=== PATIENT | female | born 1980 ===

== ENCOUNTER 2017-02-28 11:02 | Outpatient (CLI) ==
[2016-05-14 02:21] VITALS: BMI 28.8
[2017-02-28 11:35] LABS: BASOPHILS # (AUTO) 0.1 K/uL (0-0.2); BASOPHILS % (AUTO) 0.7 % (0.0-3.0); EOSINOPHILS # (AUTO) 0.6 K/ul (0.0-0.7); EOSINOPHILS % (AUTO) 8.1 % (0.0-7.0); HEMATOCRIT 39.9 % (37.0-47.0); HEMOGLOBIN 13.5 g/dl (12.0-16.0); IMMATURE GRANULOCYTE % (AUTO) 0.1 % (0.0-5.0); LYMPHOCYTES # (AUTO) 1.4 K/uL (0.60-3.4); LYMPHOCYTES % (AUTO) 18.9 (10.0-50.0); MEAN CORPUSCULAR HEMOGLOBIN 29.3 pg (27.0-31.0); MEAN CORPUSCULAR HGB CONC 33.8 (31.8-35.4); MEAN CORPUSCULAR VOLUME 86.7 fl (81.0-99.0); MONOCYTES # (AUTO) 0.6 K/uL (0.4-2.0); MONOCYTES % (AUTO) 8.1 (0-10); NEUTROPHILS # (AUTO) 4.6 K/ul (2.0-6.9); NEUTROPHILS % (AUTO) 64.1; PLATELET COUNT 278 10^3/uL (140-440); WHITE BLOOD COUNT 7.16 K/ul (4.6-10.2)
[2017-02-28 12:21] LABS: ALBUMIN/GLOBULIN RATIO 1.11; BILIRUBIN,TOTAL 0.39 mg/dL (0.00-1.20); BUN/CREATININE RATIO 17.5; CALCIUM 9.8 mg/dL (8.2-10.2); CHOL/HDL RATIO 3.1 (4.5-5.5); CREATININE 0.8 mg/dL (0.60-1.30); TOTAL PROTEIN 7.6 g/dL (6.4-8.2)
== END 2017-02-28 11:03 | disposition home or self-care (01) ==
LOC: CAR 11:02
PROVIDERS: ATTEND Nurse Practitioner Family
DX: R06.02 Shortness of breath (principal); R53.83 Other fatigue; Z86.79 Personal history of other diseases of the circulatory system
CPT/HCPCS: 36415; 80053; 80061; 82306; 82607; 84443; 85025; 93005; 93010

== ENCOUNTER 2017-03-17 06:28 | Outpatient (CLI) ==
[2016-05-14 02:21] VITALS: BMI 28.8
--- NOTE | 2017-03-17 11:15 | STRESSECHO ---
Date of Test: 03/17/17 Reason for Exam: ABNORMAL EKG, SINUS ARRHYTHMIA, CHEST PAIN Ordering Physician: JYOTI Current Medications: NONE Physical Findings: S1, S2, NO S3 Resting EKG: SINUS RHYTHM/NO ACUTE CHANGES Target Heart Rate: 157/185 STAGE MPH/GRADE HEART RATE BPM BLOOD PRESSURE mmhg RHYTHM S-T SEGMENT +/- UP DOWN SYMPTOMS,COMMENTS At Rest 63 128/78 SR X NONE 1 1.7/10% 116 156/94 SR X NONE 2 2.5/12% 130 166/90 SR X NONE 3 3.4/14% 4 4.2/16% 5 5.0/18% Immediately after 157 SR X FATIGUE Durations of Exercise: 7:00 Maximum Heart Rate Reached: 157 Reason for Termination: FATIGUE 3 MIN POST EXERCISE: HR 83/BPM, BP 160/92 MMHG INTERPRETATION: 98% OXYGEN SATURATION WITH EXERCISE ON ROOM AIR METS 10.1 1. NO EVIDENCE OF ISCHEMIA BY ST-T WAVE 2. NO CHEST PAIN OR CHEST DISCOMFORT 3. BLOOD PRESSURE RESPONSE: NORMAL 4. NO ARRHYTHMIAS NORMAL LEFT VENTRICULAR CONTRACTILITY--RESTING AND POST EXERCISE MTDD
--- NOTE | 2017-03-17 11:34 | ECHOSTRESS ---
Date of Exam: 03/17/17 [facility] Reason for Echo: ABNORMAL EKG, SINUS ARRHYTHMIA, STRESS TEST--NO ISCHEMIA M-Mode Normal Adult Results LV Dimensions Normal Adult Results AoV Opening excursions >1.6 LVEDD-base- 3.5-5.8 Ao root dimensions 2.0-3.7 LVESD-base- 3.1-4.6 L. Atrium dimensions 1.9-3.8 Post. Wall thickness 0.8-1.1 IV septum (thickness) 0.7-1.2 Post. Wall excursion 0.72-1.3 Septal motion Systolic motion R. Ventricular cavity 1.5-2.0 LVEF 60% Paradoxical septal wall motion 2-D: NORMAL LEFT VENTRICULAR CONTRACTILITY--RESTING AND POST EXERCISE M-MODE: MV: AV: TV: PV: CHAMBER SIZE: WALL MOTION: NORMAL LEFT VENTRICULAR CONTRACTILITY--RESTING AND POST EXERCISE PERICARDIUM: INTERPRETATION: 1. NORMAL LEFT VENTRICULAR CONTRACTILITY--RESTING AND POST EXERCISE MTDD
== END 2017-03-17 06:29 | disposition home or self-care (01) ==
LOC: CAR 06:28
PROVIDERS: ATTEND Nurse Practitioner Family
DX: I49.8 Other specified cardiac arrhythmias (principal); Z86.79 Personal history of other diseases of the circulatory system

== ENCOUNTER 2017-04-26 00:34 | Emergency (ER) ==
[2017-04-26 01:13] VITALS: BP 167/93; TEMP 99; BMI 29.2
[2017-04-26 01:40] LABS: BILIRUBIN,URINE Negative (NEGATIVE); KETONES,URINE Negative (NEGATIVE); LEUKOCYTE ESTERASE ,URINE Negative (NEGATIVE); NITRITE,URINE Positive (NEGATIVE); PH,URINE 5.5 (5-9); PROTEIN,URINE Negative (NEGATIVE); URINE, BLOOD Trace-intact (NEGATIVE)
[2017-04-26 01:42] LABS: ADD URINE MICROSCOPIC YES
[2017-04-26 01:43] LABS: BACTERIA,URINE 1+ (NOT PRESENT)
--- NOTE | 2017-04-26 02:06 | ED.PDOC ---
General ED Provider: Dr. BLAYNE MURPHY-ER Chief Complaint: Urinary Problem Stated Complaint: it buckley when i pee Time Seen by Physician: 01:10 Mode of Arrival: Walk-In Information Source: Patient Exam Limitations: No limitations [facility] and Triage Documentation Reviewed and Agree: Yes Complaint Exam - UTI Female Complaint/Exam Patient Complains of: Reports: Painful urination Onset/Duration: 2 dasy Symptoms Are: Still present Timing: Constant Initial Severity: Mild Current Severity: Mild Location of Pain: Reports: Suprapubic Associated Signs and Symptoms: Denies: Fever, Chills, Flank pain, Dyspareunia, Vaginal discharge Patient Rh Status: Unknown Related Surgical History: Reports: None CVA Tenderness: No Suprapubic Tenderness: No Differential Diagnoses: Cystitis, Pyelonephritis Review of Systems - Review Of Systems Constitutional: Reports: No symptoms Eyes: Reports: No symptoms Ears, Nose, Mouth, Throat: Reports: No symptoms Respiratory: Reports: No symptoms Cardiac: Reports: No symptoms GI: Reports: No symptoms : Reports: Burning, Dysuria, Pain, Urgency Musculoskeletal: Reports: No symptoms Skin: Reports: No symptoms Neurological: Reports: No symptoms Endocrine: Reports: No symptoms Hematologic/Lymphatic: Reports: No symptoms All Other Systems: Reviewed and Negative Past Medical History - Past Medical History Previously Healthy: Yes Endocrine: Reports: Unknown Cardiovascular: Reports: Unknown Respiratory: Reports: Unknown Hematological: Reports: Unknown Gastrointestinal: Reports: Unknown Genitourinary: Reports: Unknown Neuro/Psych: Reports: Unknown Musculoskeletal: Reports: Unknown Cancer: Reports: Unknown Last Menstrual Period: 04/16/17 - Surgical History General Surgical History: Reports: Tubal ligation - Family History Family History: Reports: Unknown - Social History Smoking Status: Never smoker Hx Substance Use: No Alcohol Screening: None - Immunizations Tetanus Shot up to Date: Yes Physical Exam - Physical Exam Appearance: Well-appearing, No pain distress, Well-nourished Pain Distress: Mild Eyes: BENY, EOMI, Conjunctiva clear ENT: Ears normal, Nose normal, Oropharynx normal Neck: Supple Respiratory: Airway patent Cardiovascular: RRR, Pulses normal, No rub, No murmur GI/: Soft, Nontender, No masses, Bowel sounds normal, No Organomegaly Musculoskeletal: Normal strength Skin: Warm Neurological: Sensation intact, Motor intact, Reflexes intact, Cranial nerves intact, Alert, Oriented Psychiatric: Affect appropriate, Mood appropriate Critical Care Note - Critical Care Note Total Time (mins): 0 Course - Course Orders, Labs, Meds: Lab Review 04/26/17 01:20 Urine Color [place] Urine Clarity Clear Urine pH 5.5 Ur Specific [place] <=1.005 Urine Protein Negative Urine Glucose (UA) Trace Urine Ketones Negative Urine Blood Trace-intact Urine Nitrite Positive Urine Bilirubin Negative Urine Urobilinogen 0.2 Ur Leukocyte Esterase Negative Urine Microscopic RBC 5-10 Ur Squamous Epith Cells 5-10 Urine Bacteria 1+ Orders Category Date Time Status URINALYSIS C & S IF INDICATED Stat LAB 04/26/17 01:20 Completed URINE CULTURE Routine LAB 04/26/17 01:20 Received Vital Signs: Temp Pulse Resp BP Pulse Ox 04/26/17 01:05 99.0 F 47 L 18 167/93 H 97 Departure - Departure Time of Disposition: 02:04 Disposition: HOME SELF-CARE Discharge Problem: UTI (urinary tract infection) Qualifiers: Urinary tract infection type: site unspecified Hematuria presence: without hematuria Qualifier Code: (N39.0) Urinary tract infection, site not specified Instructions: Urinary Tract Infection in Women (ED) Condition: Good Pt referred to PMD for follow-up: Yes Additional Instructions: cipro 500mg bid x 7days--f/u with pcp next week to recheck urine and culture results Allergies/Adverse Reactions: Allergies Sulfa (Sulfonamide Antibiotics) Adverse Reaction (Verified 04/26/17 01:13) Home Medications: Ambulatory Orders Multivitamin [Once Daily] 1 each PO DAILY 03/07/17 Disposition Discussed With: Patient
== END 2017-04-26 02:08 | disposition home or self-care (01) ==
LOC: ED 00:34
DX: N39.0 Urinary tract infection, site not specified (principal)
CPT/HCPCS: 81001; 87086; 87186; 99283

== ENCOUNTER 2019-03-24 13:11 | Outpatient (CLI) ==
--- NOTE | 2019-03-24 14:03 | DI ---
EXAM: Chest two views HISTORY: Dyspnea COMPARISON: None TECHNIQUE: Two views of the chest were performed FINDINGS: The lungs are clear. There is no pleural effusion or pneumothorax. The heart is normal i n size. The mediastinal contour is normal. There are no acute abnormalities of the bones. IMPRESSION: No acute cardiopulmonary process.
== END 2019-03-24 13:12 | disposition home or self-care (01) ==
LOC: RAD 13:11
PROVIDERS: ATTEND Physician Assistant
DX: R06.09 Other forms of dyspnea (principal)

== ENCOUNTER 2019-03-26 12:38 | Outpatient (CLI) | END 2019-03-26 12:39 | disposition home or self-care (01) | LOC: CAR 12:38 | PROVIDERS: ATTEND Physician Assistant | DX: R06.09 Other forms of dyspnea (principal) ==

== ENCOUNTER 2019-03-30 12:43 | Outpatient (CLI) ==
--- NOTE | 2019-04-02 09:41 | HOLTER ---
PATIENT INFORMATION AND COMMENTS Attending Physician: GI CARBONE Indications: IRREGULAR HEART BEAT __ Patient Medications: NONE __ Pre-procedure Summary: Protocol: Standard Heart Rate Started: MARCH 28 AT 1311 Minimum: 39 AT 1014 Weight: 182 Ended: MARCH 28 AT 1311 Maximum: 126 AT 1753 Height: 64" Duration: 24 HOURS Average: 70 BPM _ INTERPRETATIONS/OBSERVATIONS: 1. BASIC RHYTHM SINUS RATE 40BPM TO 126 BPM AVERAGE OF 70 BPM 2. INFREQUENT TO RARE PREMATURE ATRIAL CONTRACTIONS / PREMATURE VENTRICULAR CONTRACTIONS 3. NO ST-T WAVE CHANGES FROM BASELINE 4. NO CORRELATION WITH ACTIVITY LOG MTDD
== END 2019-03-30 12:44 | disposition home or self-care (01) ==
LOC: CAR 12:43
PROVIDERS: ATTEND Physician Assistant
DX: R00.8 Other abnormalities of heart beat (principal)
CPT/HCPCS: 93227

== ENCOUNTER 2019-04-25 01:08 | Emergency (ER) ==
[2019-04-25 01:15] VITALS: BP 166/76; TEMP 98.4; BMI 31.8
--- NOTE | 2019-04-25 02:16 | ED.PDOC ---
General ED Provider: Dr. KIN LYNNE Chief Complaint: Eye Problem Stated Complaint: bilateral conjunctivitis Time Seen by Physician: 01:20 Mode of Arrival: Walk-In Information Source: Patient Exam Limitations: No limitations Primary Care Provider: GI CARBONE Nursing and Triage Documentation Reviewed and Agree: Yes Does patient meet sepsis criteria?: No System Inflammatory Response Syndrome: Not Applicable Sepsis Protocol: For patient's 13 years and over: Temp is 96.8 and below OR 101 and greater Pulse >90 BPM Resp >20/minute Acutely Altered Mental Status Are patient's symptoms suggestive of a new infection, such as: -Pneumonia -Skin, Soft Tissue -Endocarditis -UTI -Bone, Joint Infection -Implantable Device -Acute Abdominal Infection -Wound Infection -Meningitis -Blood Stream Catheter Infection -Unknown EENT Complaint Exam - Eye Complaint/Exam Onset/Duration: last night started both red eyes while driving Symptoms Are: Still present Timing: Constant Initial Severity: Mild Current Severity: Mild Location: Discreet Character: Reports: Foreign body sensation Aggravating: Reports: Light, Contact lens Alleviating: Reports: Eye drops Associated Signs and Symptoms: Reports: Clear drainage Related History: Reports: Similar episode Eye Surgical History: Reports: None Penetrating Injury Risk Factors: None Globe Rupture Risk Factors: None Acute Glaucoma Risk Factors: None Optic Artery Occlusion Risk Factors: None Visual Field: Normal Extraocular Movement: Normal Orbit Findings: Normal Globe Findings: Intact Lid Findings: Erythema Conjunctival Findings: Exudate Corneal Findings: Clear Fluorescein Uptake: No Fundi: Normal Slit Lamp Used: No Differential Diagnoses: Conjunctivitis, Other Review of Systems - Review Of Systems Constitutional: Reports: No symptoms Eyes: Reports: Foreign body sensation, Inflammation Ears, Nose, Mouth, Throat: Reports: No symptoms Respiratory: Reports: No symptoms Cardiac: Reports: No symptoms GI: Reports: No symptoms : Reports: No symptoms Musculoskeletal: Reports: No symptoms Neurological: Reports: No symptoms Endocrine: Reports: No symptoms Hematologic/Lymphatic: Reports: No symptoms All Other Systems: Reviewed and Negative Past Medical History - Past Medical History Previously Healthy: Yes Endocrine: Reports: Unknown Cardiovascular: Reports: Unknown Respiratory: Reports: Unknown Hematological: Reports: Unknown Gastrointestinal: Reports: Unknown Genitourinary: Reports: Unknown Neuro/Psych: Reports: Unknown Musculoskeletal: Reports: Unknown Cancer: Reports: Unknown Last Menstrual Period: na - Surgical History General Surgical History: Reports: Tubal ligation - Family History Family History: Reports: Unknown - Social History Smoking Status: Never smoker Hx Substance Use: No Alcohol Screening: None - Immunizations Tetanus Shot up to Date: No Physical Exam - Physical Exam Appearance: Obese Ill-appearing: None Pain Distress: None Eyes: BENY, EOMI, Conjunctiva inflammed ENT: Ears normal, Nose normal, Oropharynx normal Neck: Supple Respiratory: Airway patent, Breath sounds clear Cardiovascular: RRR, Pulses normal, No rub GI/: Soft, Nontender, No masses Musculoskeletal: Normal strength, ROM intact, No edema Skin: Warm, Normal color Neurological: Sensation intact, Alert, Oriented Psychiatric: Affect appropriate Critical Care Note - Critical Care Note Total Time (mins): 0 Course - Course Vital Signs: Temp Pulse Resp BP Pulse Ox 04/25/19 01:11 98.4 F 76 16 166/76 H 98 Departure - Departure Time of Disposition: 02:28 Disposition: HOME SELF-CARE Discharge Problem: Conjunctivitis Instructions: Blepharitis (ED) Condition: Good Pt referred to PMD for follow-up: Yes IPMP verified?: No Additional Instructions: Ciprodex eye gtt 1 gtt q eye tid x 5 days.Azithromycin 500 mg qd po x 5 days, Benadryl 5o mg bis x 3 days, Allergies/Adverse Reactions: Allergies amoxicillin Adverse Reaction (Verified 04/25/19 01:18) Sulfa (Sulfonamide Antibiotics) Adverse Reaction (Verified 04/26/17 01:13) Home Medications: Ambulatory Orders Albuterol Sulfate [Albuterol Sulfate Hfa] 8.5 gm IA Q4-6H PRN 04/25/19 Montelukast Sodium [Singulair] 10 mg PO DAILY 04/25/19 Disposition Discussed With: Patient
== END 2019-04-25 02:38 | disposition home or self-care (01) ==
LOC: ED 01:08
DX: H10.9 Unspecified conjunctivitis (principal)
CPT/HCPCS: 99282